=== PATIENT | male | born 1975 | race Caucasian/White ===

== ENCOUNTER 2019-06-17 14:59 | Emergency (ER) | payer SELFPAY ==
[2019-06-17 15:00] VITALS: BP 132/88; PULSE 72; RESP 14; TEMP 36.8; O2SAT 99; BMI 24.3
--- NOTE | 2019-06-17 15:04 | DI.RAD.S_ITS ---
PROCEDURE: XR ELBOW RT MIN 3V INDICATIONS: fell with injury to R elbow TECHNIQUE: 3 views of the elbow were acquired. COMPARISON: None. FINDINGS: Bones: No fractures or dislocations. No suspicious bony lesions. Premature degenerative change with osteophyte formation can be seen. Soft tissues: Soft tissue swelling is seen overlying the olecranon. No elbow joint effusion. No suspicious soft tissue calcifications. IMPRESSION: Soft tissue swelling is seen overlying the olecranon. No displaced fractures are seen on these plain films. If there is focal tenderness, or other clinical concern for a fracture not seen on these images in this patient with a given history of trauma, please consider a dedicated CT or a short-term followup plain film series (in 1-2 weeks) for further evaluation. Premature osteophyte formation. Dictated by: Hubert Judd M.D. on 06/17/2019 at 14:31 Approved by: Hubert Judd M.D. on 06/17/2019 at 14:32
--- NOTE | 2019-06-17 15:14 | ED.UPPEXIN ---
HPI - Extremity Injury (Upper) <Yoni SimpsonALFONZO chaudhryP - Last Filed: 06/17/19 21:30> General Chief Complaint: Extremity Injury, Upper Stated Complaint: FALL RIGHT ARM INJURY SWELLING Source: patient Mode of arrival: ambulatory Limitations: no limitations History of Present Illness HPI narrative: This is a 43-year-old male, smoker, presents with significant other with chief complain of right elbow pain and swelling. Patient reports he had taken a mechanical fall 7 days ago while he was running backward and landed hard on right elbow on a pavement. Patient now has a take dried scab on right lateral elbow. Patient reports pain and swelling started 2 days after the fall. Patient denies fever, chills, nausea or vomiting. Pain increases with movements, bending/extension, and being when the elbow is touched. Patient has been taking [id number] ibuprofen/naproxen/Advil and Tylenol several times a day for pain and has been having difficulty sleeping due to pain. 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 Patient denies tingling/numbness to lower hand. Right dominant hand. Related Data Home Medications Medication Instructions Recorded Confirmed acetaminophen 975 mg PO Q6H PRN 06/17/19 06/17/19 ibuprofen 600 mg PO Q6H PRN 06/17/19 06/17/19 Previous Rx's Medication Instructions Recorded tramadol 50 mg PO BID PRN #7 tab MDD take 1 06/17/19 to 2 tabs as needed Allergies Allergy/AdvReac Type Severity Reaction Status Date / Time No Known Drug Allergies Allergy Verified 06/17/19 15:08 Review of Systems <Yoni CalvinALFONZO chaudhryP - Last Filed: 06/17/19 21:30> Review of Systems Narrative: General: Denies fever, chills, fatigue, malaise, sweats. HEENT: Denies sinus pain, ear pain, sore throat, difficulty swallowing, dizziness. Respiratory: Denies dyspnea, cough, wheezing, hemoptysis, sputum. Cardiovascular: Denies chest pain, palpitations, orthopnea, edema. Gastrointestinal: Denies nausea, vomiting, abdominal pain, diarrhea, constipation, melena. : Denies dysuria, frequency, incontinence, hematuria, urinary retention. Musculoskeletal: Reports right extensor aspect elbow pain with swelling and mild redness. Denies weakness or bony pain. Skin: a scab on affected external aspect elbow. Denies rash, lesions in other areas Neurologic: Denies weakness, headache, numbness, change in speech, confusion, seizures, incoordination. Psychiatric: No concerning psychosocial issues. 12-point review of systems is negative except for those stated above. PFSH <BEVERLEY Goodson - Last Filed: 06/17/19 21:30> Medical History Elbow fracture, right (Acute) Social History Smoking Status: Current every day smoker Social History Smoking Status: Current every day smoker Exam <BEVERLEY Goodson - Last Filed: 06/17/19 21:30> Narrative Exam Narrative: GEN: Alert, oriented x 3, well appearing and nourished, and in no acute distress. Head: Normal cephalic, atraumatic. No scalp or temporal tenderness, palpable mass or rash. EYES: Pupils are equal, round, and reactive to light and accommodation. Extraocular muscles are intact bilaterally. There is no subconjunctival hemorrhage, exudate and sclera non-icteric. ENT: Bilateral auditory canals and tympanic membranes clear. Hearing grossly intact. Nose without bleeding, purulent discharge or deviation. Facial sinuses nontender to palpate. Mucous membrane moist, no mucosal lesion. Throat without erythema, tonsillar hypertrophy or exudate. Uvula in midline, airway patent. Neck: Trachea in midline. No JVD, non-tender without lymphadenopathy. No masses or thyroid megaly. Supple, non-tender and no meningeal signs. CARDIAC: Normal regular rate and rhythm without murmurs, gallops, or rubs. No chest wall tenderness. No peripheral edema, cyanosis or pallor. Capillary refill is less than 2 seconds. RESPIRATORY: Lungs are cleat to auscultate bilaterally. No cough, wheezes, rales, or rhonchi. No stridor, respiratory distress, increase work of breathing, or accessary muscle used. ABD: Abdomen soft, nontender and non-distended. No guarding or rebound tenderness to palpate. Bowel sounds are normal in all 4 quadrants. There is no palpable masses or organomegaly. EXT: Full painless ROM of all extremities with no loss of sensation, strength, effusion or edema. SKIN: Warm, dry, normal color for patient. No erythema, lesions or rash over visible areas. BACK: Nontender without deformity or crepitance. No flank tenderness. NEUROLOGICAL: Alert and oriented to place, time and person. Sensation and motor function intact bilaterally. No facial droops, dysphasia. PSYCHIATRIC: Good judgement and reason, without hallucinations, abnormal affect or abnormal behaviors during the examination. Patient is not suicidal. Initial Vital Signs Initial Vital Signs: Vital Signs Temperature 98.3 F 06/17/19 15:00 Pulse Rate 72 06/17/19 15:00 Respiratory Rate 14 06/17/19 15:00 Blood Pressure 132/88 06/17/19 15:00 Pulse Oximetry 99 06/17/19 15:00 Extrem Right upper extremity: shoulder/upper arm Details: normal to inspection and normal ROM, elbow/forearm Details: abnormal to inspection Details: joint swelling, erythema (mild) and olecranon swelling (mild), tenderness, swelling, normal ROM and distal pulses intact; no crepitus and no deformity and hand Details: normal to inspection, normal capillary refill, neuromotor exam normal Details: wrist extension normal, thumb opposition normal and fingers 2-5 ABduction normal, neurosensory exam normal and normal ROM of fingers Left upper extremity: normal to inspection and full ROM Right lower extremity: normal to inspection and full ROM Left lower extremity: normal to inspection and full ROM <Ernesto Ross DO - Last Filed: 06/18/19 07:01> Initial Vital Signs Initial Vital Signs: Vital Signs Temperature 98.3 F 06/17/19 15:00 Pulse Rate 72 06/17/19 15:00 Respiratory Rate 14 06/17/19 15:00 Blood Pressure 132/88 06/17/19 15:00 Pulse Oximetry 99 06/17/19 15:00 Scores <BEVERLEY Goodson - Last Filed: 06/17/19 21:30> GCS [place] coma scale eye opening: Spontaneous [place] coma scale verbal response: Orientated [place] coma scale motor response: Obey commands [place] coma scale total score: 15 Course <BEVERLEY Goodson - Last Filed: 06/17/19 21:30> Orders Ordered: Discontinued Medications Diphtheria/Tetanus/Acell Pertussis (Adacel) 0.5 ml IM .ONCE ONE Stop: 06/17/19 15:28 Last Admin: 06/17/19 15:42 Dose: 0.5 ml Documented by: JOLEEN Vital Signs Vital signs: Vital Signs - 8 hr 06/17/19 15:00 06/17/19 16:03 Temperature 98.3 F Pulse Rate 72 77 Respiratory Rate 14 16 Blood Pressure 132/88 128/70 Pulse Oximetry 99 96 <Ernesto Ross DO - Last Filed: 06/18/19 07:01> Orders Ordered: Discontinued Medications Diphtheria/Tetanus/Acell Pertussis (Adacel) 0.5 ml IM .ONCE ONE Stop: 06/17/19 15:28 Last Admin: 06/17/19 15:42 Dose: 0.5 ml Documented by: JOLEEN Vital Signs Vital signs: Vital Signs - 8 hr 06/17/19 15:00 06/17/19 16:03 Temperature 98.3 F Pulse Rate 72 77 Respiratory Rate 14 16 Blood Pressure 132/88 128/70 Pulse Oximetry 99 96 MDM - Extremity Injury (Upper) <BEVERLEY Goodson - Last Filed: 06/17/19 21:30> Differential Diagnosis Differential diagnosis: Likely other (fracture of elbow, elbow effusion, bursitis, contusion to R elbow) Medical Records Attestation: I reviewed the patient's medical records. Imaging Data XR-Elbow RT: Radiologist's impression: [place] [address] XRay Report Signed Patient: Corey Jefferson WMR#: [id number] : 1975Acct:[id number] Age/Sex: 43 / MDate of Service: 06/17/19 Loc: ED Accession Number: [id number] Procedure: XR elbow RT min 3V Ordering Provider: Yoni Kapoor PROCEDURE: XR ELBOW RT MIN 3V INDICATIONS: fell with injury to R elbow TECHNIQUE: 3 views of the elbow were acquired. COMPARISON: None. FINDINGS: Bones: No fractures or dislocations. No suspicious bony lesions. Premature degenerative change with osteophyte formation can be seen. Soft tissues: Soft tissue swelling is seen overlying the olecranon. No elbow joint effusion. No suspicious soft tissue calcifications. IMPRESSION: Soft tissue swelling is seen overlying the olecranon. No displaced fractures are seen on these plain films. If there is focal tenderness, or other clinical concern for a fracture not seen on these images in this patient with a given history of trauma, please consider a dedicated CT or a short-term followup plain film series (in 1-2 weeks) for further evaluation. Premature osteophyte formation. Dictated by: Hubert Judd M.D. on 06/17/2019 at 14:31 Approved by: Hubert Judd M.D. on 06/17/2019 at 14:32 MDM Narrative Medical decision making narrative: The patient presents to ED with right elbow swelling and discomfort with movements or when the elbows been touched for last 5 days. Patient had sustained a fall and landed hard on affected elbow 7 days ago. There is no neurovascular deficit per physical exam. X-ray shows no acute findings such as fractures, dislocation or joint effusion but soft tissue swelling. We discussed RICE therapy and the Ian wrap has been applied for affected arm. Patient has been taking [id number] Tylenol and NSAIDS around the clock but pain has been managed well and unable to sleep throughout the night due to pain. Patient discharged to home with a few tabs of Tramadol for severe pain and to use it at night. Return precautions were discussed with the patient and x-ray finding was informed patient. Patient agrees with treatment plan and no further questions were expressed. Work off note for 1 day has provided for rest. Discharge Plan Departure Patient Disposition: Home Clinical Impression: Contusion of elbow Qualifiers: Encounter type: initial encounter Laterality: right Qualified Code(s): S50.01XA - Contusion of right elbow, initial encounter Discharge Date/Time: 06/17/19 16:05 Instructions: DI for Elbow Pain Activity Restrictions/Additional Instructions: You have been diagnosed with [elbow contusion. The x-ray test does not show any acute findings such as fracture, dislocation, effusion. If her pain persists greater than 2 weeks, consult your doctor for repeating imaging test.]. What to do: *Take your medications as directed. Tramadol could cause drowsiness. Please to not drive, drink alcohol, operate heavy equipment while you're taking this medication. Please use ?RICE? therapy such as Rest, Ice, Compression/Spliint/Acewra, and Elevation above the chest level. Ice the area for next 24-48 hrs after the initial injury. Please try to avoid getting swelling to the affected site since this may cause increasing pain. You could use OTC Tylenol and or Ibuprofen as needed for pain. *Follow up with your primary care provider in 2-3 days, call for an appointment. Let them know you were seen in the ED and that we asked you to be seen in follow up. *Return to ED if you have any new, worsening, or concerning symptoms such as increasing pain, swelling, tingling/numbness, unable to move affected/below the injury site, cool limbs. Prescriptions: New tramadol 50 mg tablet 50 mg PO BID MDD take 1 to 2 tabs as needed PRN (Reason: pain) Qty: 7 RF: 0 No Action acetaminophen 325 mg Tablet 975 mg PO Q6H PRN (Reason: Pain, Moderate) RF: 0 ibuprofen 200 mg Tablet 600 mg PO Q6H PRN (Reason: Pain, Moderate) RF: 0 Referrals: [facility] [Outside] (Walk in clinic) [facility] [Outside] Stand Alone Forms: Work Release Note <Ernesto Ross, - Last Filed: 06/18/19 07:01> Sign Out Provider Sign Out Attestation: I was available for consultation during this patient's emergency department encounter
[2019-06-17] MEDS: TET,DIPH,PERTUSS(ACELL),VAC/PF 0.5 ML SYRINGE IM (15:42)
[2019-06-17 16:03] VITALS: BP 128/70; PULSE 77; RESP 16; O2SAT 96
== END 2019-06-17 16:05 | disposition home or self-care (01) ==
PROVIDERS: Emergency Provider Nurse Practitioner Family
DX: S50.01XA Contusion of right elbow, initial encounter (principal); W19.XXXA Unspecified fall, initial encounter
CPT/HCPCS: 73080; 90471; 99283; 90715